=== PATIENT | female | born 1990 | race Caucasian/White ===

== ENCOUNTER 2022-06-26 06:33 | Day surgery (SDC) | payer MEDICAID ==
[~2022-06-26] VITALS: Ht 162.6 cm; Wt 64.9 kg
[2022-06-26 07:01] LABS: HCG,QUAL RESULT NEGATIVE (NEGATIVE)
[2022-06-26] MEDS ORDERED: SIMETHICONE 40 MG/0.6 ML ML ONE (07:04)
[2022-06-26] MEDS ORDERED: fentaNYL CITRATE/PF 100 MCG/2 ML AMP ONE ×2 (07:04→09:08)
[2022-06-26] MEDS ORDERED: MIDAZOLAM HCL 5 MG/5 ML VIAL ONE ×2 (07:04→09:09)
[2022-06-26] MEDS ORDERED: DIPHENHYDRAMINE INJ 50 MG/ML VIAL ONE (09:09)
[2022-06-26 11:56] VITALS: BP_SYST 114
== END 2022-06-26 10:47 | disposition home or self-care (01) ==
LOC: SDS 06:33 → SMU 06:41 → SDS 10:47
PROVIDERS: ATTEND Internal Medicine
DX: K62.5 Hemorrhage of anus and rectum (principal); K29.50 Unspecified chronic gastritis without bleeding; K64.8 Other hemorrhoids; E78.5 Hyperlipidemia, unspecified; Z20.822 Contact with and (suspected) exposure to COVID-19; Z79.899 Other long term (current) drug therapy
CPT/HCPCS: 43239; 45378; 87426; 87081; 84703; 36415; 99152; 99153; G0378; J1200; J2250; J3010